=== PATIENT | female | born 1995 | race Hispanic/Latino ===

== ENCOUNTER 2020-07-05 17:45 | Inpatient (IN) | payer BC, MEDICAID ==
[~2020-07-05] VITALS: Ht 165.1 cm; Wt 86.6 kg
[2020-07-05] MEDS: MISOPROSTOL 100 MCG TABLET VG SCH ×2 (00:05→20:03)
[2020-07-05] MEDS ORDERED: LACTATED RINGERS 1000ML 1,000 ML IV PRN (17:47)
[2020-07-05] MEDS ORDERED: NALOXONE HCL 0.4 MG/1 ML ML IV PRN (18:00)
[2020-07-05] MEDS ORDERED: LACTATED RINGERS 500 ML 500 ML IV PRN (18:00)
[2020-07-05] MEDS ORDERED: BUTORPHANOL TARTRATE 2 MG/ML IVP PRN (18:00)
[2020-07-05] MEDS ORDERED: ROPIVACAINE 0.2% 100ML VIAL 100 ML EP SCH (18:00)
[2020-07-05] MEDS ORDERED: MISOPROSTOL 25 MCG TABLET VG SCH (18:00)
[2020-07-05] MEDS ORDERED: EPHEDRINE SULFATE 50 MG/ML AMPULE IVP PRN (18:00)
[2020-07-05] MEDS ORDERED: OXYTOCIN-LR 20 UNITS/1000 ML 1,000 ML IV SCH ×2 (18:00→18:45)
[2020-07-05 18:32] LABS: APPEARANCE,URINE Clear (CLEAR); BILIRUBIN,URINE Negative (NEGATIVE); COLOR,URINE Yellow (YELLOW); GLUCOSE, URINE (UA) Negative (NEGATIVE); KETONES,URINE 40 mg/dL (NEGATIVE); LEUKOCYTE ESTERASE ,URINE Negative (NEGATIVE); NITRATE,URINE Negative (NEGATIVE); OCCULT BLOOD,URINE Negative (NEGATIVE); PROTEIN,URINE Trace mg/dL (NEGATIVE)
[2020-07-05 18:47] LABS: HEMATOCRIT 33.9 % (36-48); MEAN CORPUSCULAR HEMOGLOBIN 27.2 pg (27.0-33.0); MEAN CORPUSCULAR HGB CONC 31.9 g/dL (32.0-36.0); MEAN CORPUSCULAR VOLUME 85.4 fL (79-99); RED BLOOD CELL COUNT(AUTO) 3.97 MIL/uL (4.00-5.50); RED CELL DISTRIBUTION WIDTH 14.3 % (11.0-15.5); WHITE BLOOD COUNT (AUTO) 11.1 K/uL (4.8-10.8)
[2020-07-05 18:49] LABS: BACTERIA,URINE Few /HPF (None Seen); MUCUS,URINE Few LPF (None Seen); RBC,URINE 0-1 /HPF (0-1); SQUAMOUS EPITHELIAL CELL,UR Few /HPF (0-2)
[2020-07-05 19:03] VITALS: BP 119/66
[2020-07-06] MEDS ORDERED: CEFAZOLIN SODIUM 1 GM VIAL ONE (10:38)
[2020-07-06] MEDS ORDERED: CALDOLOR 800MG+NS 250ML 250 ML IV ONE (10:51)
[2020-07-06] MEDS ORDERED: CALDOLOR 800MG+NS 250ML 250 ML IV PRN (11:00)
[2020-07-06] MEDS ORDERED: LACTATED RINGERS 1000ML 1,000 ML IV SCH (11:00)
[2020-07-06] MEDS ORDERED: CLINDAMYCIN 900 MG/D5% WATER 50 ML IV PRN (11:00)
[2020-07-06] MEDS ORDERED: GENTAMICIN SULFATE 240 MG in SODIUM CHLORIDE 0.9% 100 ML IV PRN (11:00)
[2020-07-06] MEDS ORDERED: FENTANYL CITRATE PF 50 MCG/1 ML 2ML VIAL ONE (11:30)
[2020-07-06] MEDS ORDERED: METHYLERGONOVINE MALEATE 0.2 MG/1 ML ML ONE (11:32)
[2020-07-06] MEDS ORDERED: EPHEDRINE SULFATE 50 MG/ML AMPULE ONE (11:44)
[2020-07-06] MEDS ORDERED: MIDAZOLAM HCL 1 MG/ML 2ML VIAL ONE (11:45)
[2020-07-06] MEDS ORDERED: ONDANSETRON HCL 4 MG/2 ML VIAL ONE (11:49)
[2020-07-06] MEDS ORDERED: METOCLOPRAMIDE 10 MG/2 ML VIAL ONE (11:49)
[2020-07-06] MEDS ORDERED: DURAMORPH PF1 MG/ML 10ML AMP IV ONE (12:08)
[2020-07-06] MEDS ORDERED: IBUPROFEN 600 MG TABLET PO PRN (12:15)
[2020-07-06] MEDS ORDERED: DIPHENHYDRAMINE HCL 25 MG CAPSULE PO PRN (12:15)
[2020-07-06] MEDS ORDERED: DIPH,PERTUSS(ACELL),TET VAC/PF 0.5 ML VIAL IM SCH (12:15)
[2020-07-06] MEDS ORDERED: MEASLES/MUMPS/RUBELLA VACCINE, LIVE 0.5 ML/VIAL SQ SCH (12:15)
[2020-07-06] MEDS ORDERED: BISACODYL 10 MG SUPP.RECT RC PRN (12:15)
[2020-07-06] MEDS ORDERED: OXYTOCIN-LR 20 UNITS/1000 ML 1,000 ML IV PRN (12:15)
[2020-07-06] MEDS ORDERED: MEPERIDINE-PF 75 MG/ML SYG IM PRN (12:15)
[2020-07-06] MEDS ORDERED: HYDROCODONE/ACETAMINOPHEN 5/325 MG TAB PO PRN (12:15)
[2020-07-06] MEDS ORDERED: SODIUM CHLORIDE 0.9% 10 ML VIAL IVP PRN (12:15)
[2020-07-06] MEDS ORDERED: PROMETHAZINE HCL 25 MG/ML 1ML AMPULE IM PRN (12:15)
[2020-07-06] MEDS ORDERED: ACETAMINOPHEN-CODEINE 300/30MG TAB PO PRN (12:15)
[2020-07-06] MEDS ORDERED: LANOLIN 30GM OINTMENT TP PRN (12:15)
[2020-07-06] MEDS ORDERED: ACETAMINOPHEN EXTRA STRENGTH 500 MG TABLET PO PRN (12:15)
[2020-07-06 14:04] VITALS: BP 134/82
--- NOTE | 2020-07-06 14:10 | NUR ---
PATIENT ORIENTED TO ROOM. NO PAIN REPORTED AT THIS TIME. PERICARE GIVEN, BLEEDING IS SMALL. INCISION IS DRY AND INTACT. ASSISTED PATIENT TO LATCH BABY TO RIGHT BREAST.
--- NOTE | 2020-07-06 16:35 | NUR ---
NO PAIN REPORTED AT THIS TIME. ASSISTED PATIENT IN SUCCESSFULLY LATCHING BABY TO LEFT BREAST.
[2020-07-06] MEDS ORDERED: NALOXONE HCL 0.4 MG/1 ML ML IVP PRN ×3 (18:00)
[2020-07-06] MEDS ORDERED: DiphenhydrAMINE HCL 50 MG/ML VIAL IVP PRN (18:00)
[2020-07-06] MEDS ORDERED: EPHEDRINE SULFATE 50 MG/ML AMPULE IVP PRN (18:00)
[2020-07-06] MEDS ORDERED: ONDANSETRON HCL 4 MG/2 ML VIAL IVP PRN (18:00)
[2020-07-06] MEDS: DEXTROSE 5 %-0.45 % NACL 1,000 ML IV PRN (18:08)
--- NOTE | 2020-07-06 19:35 | NUR ---
Patient; Patient received awake in bed with Guthrie Catheter patent flowing clear yellow urine, IV of D5 1/2 NS infusing well. APPLIED RESEARCHER pump Naropin 0.2%/100 new bag changed witnessed by Gudelia Rutledge RN. Plan of care discussed with patient verbalizes understanding.
[2020-07-06 19:41] VITALS: BP 124/79
[2020-07-06] MEDS: CALDOLOR 800MG+NS 250ML 250 ML IV SCH (20:12)
[2020-07-06] MEDS: IBUPROFEN 800 MG TAB PO SCH (20:15)
[2020-07-06] MEDS: SIMETHICONE 80 MG TAB.CHEW PO PRN (20:58)
[2020-07-06] MEDS: DOCUSATE SODIUM 100 MG CAP PO SCH (20:58)
[2020-07-06 23:22] VITALS: BP 118/79
[2020-07-07] MEDS: DEXTROSE 5 %-0.45 % NACL 1,000 ML IV PRN (01:56)
[2020-07-07 03:50] VITALS: BP 108/70
[2020-07-07] MEDS: IBUPROFEN 800 MG TAB PO SCH ×2 (04:15→12:55)
[2020-07-07] MEDS: CALDOLOR 800MG+NS 250ML 250 ML IV SCH (04:41)
--- NOTE | 2020-07-07 06:25 | NUR ---
Communication. Kaci Patel CRNA called via telephone asked if the epidural catheter needs to be discontinued he claimed, " Leave it 24 hours. "
[2020-07-07 06:41] LABS: HEMATOCRIT 30.8 % (36-48); MEAN CORPUSCULAR HEMOGLOBIN 27.4 pg (27.0-33.0); MEAN CORPUSCULAR HGB CONC 32.1 g/dL (32.0-36.0); MEAN CORPUSCULAR VOLUME 85.3 fL (79-99); RED BLOOD CELL COUNT(AUTO) 3.61 MIL/uL (4.00-5.50); RED CELL DISTRIBUTION WIDTH 14.3 % (11.0-15.5); WHITE BLOOD COUNT (AUTO) 11.7 K/uL (4.8-10.8)
--- NOTE | 2020-07-07 06:55 | NUR ---
Jamil Jarvis CRNA; Jamil Jarvis CRNA came and ordered to discontinue Epidural Catheter.
--- NOTE | 2020-07-07 07:50 | NUR ---
Epidural Catheter; Epidural Catheter discontinued tip intact. Patient tolerated it well.
[2020-07-07 07:55] VITALS: BP 119/68
[2020-07-07] MEDS ORDERED: LIDOCAINE 5% TOPICAL PATCH TP SCH (09:00)
[2020-07-07] MEDS: DOCUSATE SODIUM 100 MG CAP PO SCH (10:04)
[2020-07-07] MEDS: SIMETHICONE 80 MG TAB.CHEW PO PRN (10:04)
--- NOTE | 2020-07-07 10:05 | NUR ---
GARCIA CATHETER REMOVED WITH TIP INTACT. PERICARE GIVEN AT THIS TIME. ASSISTED PATIENT OOB TO BEDSIDE CHAIR.
[2020-07-07 10:14] LABS: HEPATITIS Bs ANTIGEN SCREEN P Negative (Negative)
--- NOTE | 2020-07-07 11:00 | NUR ---
PATIENT AMBULATING IN HALLWAY. NO C/O DIZZINESS, STEADY GAIT NOTED.
[2020-07-07 12:30] VITALS: BP 120/72
--- NOTE | 2020-07-07 15:40 | NUR ---
PATIENT LEFT UNIT VIA WHEELCHAIR WITH BABY IN ARMS. PERSONAL VEHICLE USED FOR TRANSPORTATION ACCOMPANIED BY SIGNIFICANT OTHER. BABY SECURE IN CARSEAT. NO COMPLAINTS OR CONCERNS ADDRESSED FROM PATIENT ON DISCHARGE.
== END 2020-07-07 15:40 | disposition home or self-care (01) | DRG 788 ==
LOC: LDH 17:45 → WSH 07-06 13:59
PROVIDERS: ADMIT Obstetrics & Gynecology; ATTEND Obstetrics & Gynecology
PROC: 10D00Z1 Extraction of Products of Conception, Low, Open Approach (ICD-10-PCS; principal; 2020-07-06 11:00)
DX: O76 Abnormality in fetal heart rate and rhythm complicating labor and delivery (principal); O69.1XX0 Labor and delivery complicated by cord around neck, with compression, not applicable or unspecified; Z3A.40 40 weeks gestation of pregnancy; Z37.0 Single live birth; O35.9XX0 Maternal care for (suspected) fetal abnormality and damage, unspecified, not applicable or unspecified
CPT/HCPCS: 36415; 59510; 81001; 85027; 86592; 86850; 86900; 86901; 87340; 90715; A4314; A4344; A4606; G0378; J0690; J1200; J1741; J2210; J2250; J2274; J2405; J2590; J2765; J2795; J3010; J3490; J7120